=== PATIENT | female | born 1980 | race Caucasian/White ===

== ENCOUNTER → 2019-02-23 | Outpatient (CLI) | payer MEDICAID ==
[~2019-02-23] MED LIST: HYDR12.55 PO; OXAZ10CA3 PO
[2019-02-23 20:34] LABS: ALBUMIN 4.2 GM/DL (3.2-5.2); ALT/SGPT 26 U/L (12-78); BILIRUBIN,TOTAL 0.1 MG/DL (0.2-1.0); BLOOD UREA NITROGEN 18 MG/DL (7-18); CARBON DIOXIDE LEVEL 31 MEQ/L (21-32); CHLORIDE LEVEL 106 MEQ/L (98-107); CREATININE FOR GFR 0.95 MG/DL (0.55-1.30); GLOMERULAR FILTRATION RATE > 60.0 (>60); GLUCOSE, FASTING 80 MG/DL (70-100); POTASSIUM SERUM 4.2 MEQ/L (3.5-5.1); SODIUM LEVEL 139 MEQ/L (136-145); TOTAL PROTEIN 7.5 GM/DL (6.4-8.2)
[2019-02-26 11:18] LABS: HEPATITIS B SURFACE ANTIBODY NEGATIVE (POSITIVE)
[2019-02-26 11:29] LABS: HEPATITIS B SURFACE ANTIGEN NEGATIVE (NEGATIVE)
[2019-02-26 11:57] LABS: HEPATITIS C VIRUS ABY INDEX 0.1 INDEX (<0.8)
== END ==
LOC: M WUC 16:10
DX: Z11.59 Encounter for screening for other viral diseases (principal); F10.20 Alcohol dependence, uncomplicated

== ENCOUNTER → 2019-04-20 | Outpatient (CLI) | payer OTHER ==
[2019-04-20 17:14] LABS: FREE THYROXINE INDEX 2.1 % (1.3-4.8); THYROID STIMULATING HORMONE 1.1 uIU/ML (0.358-3.740); THYROXINE (T4) 6.2 UG/DL (4.5-12.0)
== END ==
LOC: M WUC 14:29
DX: F41.9 Anxiety disorder, unspecified (principal)

== ENCOUNTER 2019-06-12 21:16 | Emergency (ER) | payer MEDICAID, OTHER ==
[~2019-06-12] VITALS: Ht 162.6 cm; Wt 80.9 kg
[2019-06-12 22:43] LABS: AMPHETAMINES LEVEL URINE NEGATIVE (NEGATIVE); BARBITURATES URINE NEGATIVE (NEGATIVE); BENZODIAZEPINES URINE NEGATIVE (NEGATIVE); CANNABINOIDS URINE NEGATIVE (NEGATIVE); COCAINE METABOLITE URINE NEGATIVE (NEGATIVE); METHADONE URINE NEGATIVE (NEGATIVE); OPIATES URINE NEGATIVE (NEGATIVE); PHENCYCLIDINE URINE NEGATIVE (NEGATIVE)
[2019-06-12 23:31] LABS: HEMATOCRIT 40.1 % (36.0-47.0); HEMOGLOBIN 13.3 g/dl (12.0-15.5); MEAN CORPUSCULAR HEMOGLOBIN 29.8 pg (27.0-33.0); MEAN CORPUSCULAR HGB CONC 33.2 g/dl (32.0-36.5); MEAN CORPUSCULAR VOLUME 89.9 fl (80.0-96.0); PLATELET COUNT, AUTOMATED 342 10^3/uL (150-450); RED BLOOD COUNT 4.46 10^6/uL (4.00-5.40); WHITE BLOOD COUNT 11.1 10^3/uL (4.0-10.0)
[2019-06-13] MEDS ORDERED: OXAZEPAM 15 MG CAP PO ONE (00:15)
[2019-06-13] MEDS ORDERED: hydroCHLOROthiazide 12.5 MG CAPSULE PO ONE (00:15)
[2019-06-13 00:17] LABS: ACETAMINOPHEN LEVEL < 2.0 UG/ML (10.0-30.0); ALBUMIN 3.9 GM/DL (3.2-5.2); ALT/SGPT 20 U/L (12-78); BILIRUBIN,DIRECT < 0.1 MG/DL (0.0-0.2); BILIRUBIN,TOTAL 0.3 MG/DL (0.2-1.0); BLOOD UREA NITROGEN 13 MG/DL (7-18); CALCIUM LEVEL 8.2 MG/DL (8.5-10.1); CARBON DIOXIDE LEVEL 23 MEQ/L (21-32); CHLORIDE LEVEL 105 MEQ/L (98-107); ETHYL ALCOHOL (ETHANOL) 0.016 % (0.000-0.010); GLOMERULAR FILTRATION RATE > 60.0 (>60); GLUCOSE, FASTING 72 MG/DL (70-100); POTASSIUM SERUM 3.8 MEQ/L (3.5-5.1); SALICYLATE LEVEL 2.8 MG/DL (5.0-30.0); SODIUM LEVEL 138 MEQ/L (136-145); TOTAL PROTEIN 7.5 GM/DL (6.4-8.2)
[2019-06-13 00:21] LABS: HCG, SERUM QUALITATIVE NEGATIVE (NEGATIVE)
[2019-06-13] MEDS ORDERED: HYDR12.55 PO (00:38)
[2019-06-13] MEDS ORDERED: OXAZ10CA3 PO (00:38)
[2019-06-13 00:50] VITALS: BP 198/122
--- NOTE | 2019-06-14 06:55 | ECGEPIP ---
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
== END 2019-06-13 01:09 | disposition home or self-care (01) ==
LOC: M ED 21:16
DX: F10.20 Alcohol dependence, uncomplicated (principal); I10 Essential (primary) hypertension
CPT/HCPCS: 36415; 80048; 80076; 80307; 84443; 84703; 85027; 93005; 99284; G0480

== ENCOUNTER 2019-06-13 02:44 | Emergency (ER) | payer OTHER ==
[~2019-06-13] VITALS: Ht 162.6 cm; Wt 80.5 kg
[2019-06-13 05:07] VITALS: BP 200/115
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
== END 2019-06-13 06:04 | disposition home or self-care (01) ==
LOC: M ED 02:44
DX: Z04.1 Encounter for examination and observation following transport accident (principal); V47.5XXA Car driver injured in collision with fixed or stationary object in traffic accident, initial encounter; Y92.410 Unspecified street and highway as the place of occurrence of the external cause; I10 Essential (primary) hypertension; F10.230 Alcohol dependence with withdrawal, uncomplicated; Z79.899 Other long term (current) drug therapy

== ENCOUNTER 2019-09-30 21:58 | Emergency (ER) | payer OTHER ==
[~2019-09-30] VITALS: Ht 162.6 cm; Wt 84.1 kg
[2019-09-30] MEDS ORDERED: NS 1,000 ML IV ONE (23:30)
[2019-10-01 00:11] LABS: BASO # 0.1 10^3/uL (0.0-0.2); BASO % 1.5 % (0.0-1.0); EOS # 0.5 10^3/uL (0.0-0.5); EOS % 5.4 % (0.0-3.0); HEMATOCRIT 45.3 % (36.0-47.0); HEMOGLOBIN 14.8 g/dl (12.0-15.5); LYMPH # 2.8 10^3/uL (1.5-5.0); LYMPH % 33.6 % (24.0-44.0); MEAN CORPUSCULAR HEMOGLOBIN 28.1 pg (27.0-33.0); MEAN CORPUSCULAR HGB CONC 32.7 g/dl (32.0-36.5); MEAN CORPUSCULAR VOLUME 86.1 fl (80.0-96.0); MONO # 0.6 10^3/uL (0.0-0.8); MONO % 7.6 % (0.0-5.0); NEUTROPHILS # 4.2 10^3/uL (1.5-8.5); NEUTROPHILS % 51.1 % (36.0-66.0); PLATELET COUNT, AUTOMATED 374 10^3/uL (150-450); RED BLOOD COUNT 5.26 10^6/uL (4.00-5.40); WHITE BLOOD COUNT 8.3 10^3/uL (4.0-10.0)
[2019-10-01 00:24] LABS: AMPHETAMINES LEVEL URINE NEGATIVE (NEGATIVE); BARBITURATES URINE NEGATIVE (NEGATIVE); BENZODIAZEPINES URINE NEGATIVE (NEGATIVE); CANNABINOIDS URINE NEGATIVE (NEGATIVE); COCAINE METABOLITE URINE NEGATIVE (NEGATIVE); METHADONE URINE NEGATIVE (NEGATIVE); OPIATES URINE NEGATIVE (NEGATIVE); PHENCYCLIDINE URINE NEGATIVE (NEGATIVE)
[2019-10-01 00:25] LABS: ACETAMINOPHEN LEVEL < 2.0 UG/ML (10.0-30.0); ALBUMIN 3.8 GM/DL (3.2-5.2); ALT/SGPT 22 U/L (12-78); BILIRUBIN,DIRECT < 0.1 MG/DL (0.0-0.2); BILIRUBIN,TOTAL 0.1 MG/DL (0.2-1.0); ETHYL ALCOHOL (ETHANOL) 0.153 % (0.000-0.010); LIPASE 127 U/L (73-393); SALICYLATE LEVEL 2.3 MG/DL (5.0-30.0); TOTAL PROTEIN 8.2 GM/DL (6.4-8.2)
[2019-10-01 01:30] VITALS: BP 135/75
== END 2019-10-01 01:51 | disposition home or self-care (01) ==
LOC: M ED 21:58
DX: F10.120 Alcohol abuse with intoxication, uncomplicated (principal); F17.200 Nicotine dependence, unspecified, uncomplicated
CPT/HCPCS: 80047; 80076; 80307; 83690; 84702; 85025; 93041; 96360; 96361; 99284; G0480

== ENCOUNTER → 2019-10-16 | Outpatient (REF) | payer OTHER ==
[2019-10-16 17:48] LABS: BLOOD UREA NITROGEN 20 MG/DL (7-18); CALCIUM LEVEL 8.8 MG/DL (8.5-10.1); CARBON DIOXIDE LEVEL 28 MEQ/L (21-32); CHLORIDE LEVEL 107 MEQ/L (98-107); GLOMERULAR FILTRATION RATE > 60.0 (>60); GLUCOSE, FASTING 95 MG/DL (70-100); POTASSIUM SERUM 5.1 MEQ/L (3.5-5.1); SODIUM LEVEL 138 MEQ/L (136-145)
[2019-10-16 17:55] LABS: APPEARANCE, URINE CLOUDY (CLEAR); BACTERIA, URINE AUTO 2+ (NEGATIVE); BILIRUBIN, URINE AUTO NEGATIVE (NEGATIVE); BLOOD, URINE BLOOD NEGATIVE (NEGATIVE); COLOR, URINE YELLOW (YELLOW); GLUCOSE, URINE (UA) AUTO NEGATIVE (NEGATIVE); KETONE, URINE AUTO TRACE mg/dL (NEGATIVE); LEUKOCYTE ESTERASE, URINE AUTO TRACE (NEGATIVE); MUCUS, URINE SMALL (NEGATIVE); NITRITE, URINE AUTO NEGATIVE (NEGATIVE); PROTEIN, URINE AUTO NEGATIVE (NEGATIVE); RBC, URINE AUTO 2 /HPF (0-3); SPECIFIC GRAVITY URINE AUTO 1.021 (1.002-1.035); SQUAMOUS EPITHELIAL CELL UR AU 19 /HPF (0-6); TRANSITIONAL EPITHELIAL AUTO <1 /HPF; UROBILINOGEN, URINE AUTO 0.2 mg/dL (0.0-2.0); WBC, URINE AUTO 15 /HPF (0-3)
== END ==
LOC: M SFHCPLAZ 12:21
DX: I16.0 Hypertensive urgency (principal)

== ENCOUNTER 2019-11-07 22:10 | Observation (INO) | payer OTHER ==
[~2019-11-07] VITALS: Ht 162.6 cm; Wt 91.2 kg
[2019-11-07] MEDS ORDERED: NS 1,000 ML IV ONE (22:30)
--- NOTE | 2019-11-07 22:34 | ECGEPIP ---
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
[2019-11-07 22:50] LABS: BASO # 0.1 10^3/uL (0.0-0.2); BASO % 0.8 % (0.0-1.0); EOS # 0.3 10^3/uL (0.0-0.5); EOS % 3.8 % (0.0-3.0); HEMATOCRIT 33.3 % (36.0-47.0); HEMOGLOBIN 10.8 g/dl (12.0-15.5); LYMPH # 2.6 10^3/uL (1.5-5.0); LYMPH % 34.9 % (24.0-44.0); MEAN CORPUSCULAR HEMOGLOBIN 28.4 pg (27.0-33.0); MEAN CORPUSCULAR HGB CONC 32.4 g/dl (32.0-36.5); MEAN CORPUSCULAR VOLUME 87.6 fl (80.0-96.0); MONO # 0.7 10^3/uL (0.0-0.8); MONO % 9.3 % (0.0-5.0); NEUTROPHILS # 3.7 10^3/uL (1.5-8.5); NEUTROPHILS % 50.9 % (36.0-66.0); PLATELET COUNT, AUTOMATED 307 10^3/uL (150-450); WHITE BLOOD COUNT 7.3 10^3/uL (4.0-10.0)
[2019-11-07 23:05] LABS: AMPHETAMINES LEVEL URINE NEGATIVE (NEGATIVE); BARBITURATES URINE NEGATIVE (NEGATIVE); BENZODIAZEPINES URINE NEGATIVE (NEGATIVE); CANNABINOIDS URINE NEGATIVE (NEGATIVE); COCAINE METABOLITE URINE NEGATIVE (NEGATIVE); METHADONE URINE NEGATIVE (NEGATIVE); OPIATES URINE NEGATIVE (NEGATIVE); PHENCYCLIDINE URINE NEGATIVE (NEGATIVE)
[2019-11-07 23:24] LABS: HCG, SERUM QUALITATIVE NEGATIVE (NEGATIVE)
[2019-11-07 23:33] LABS: ACETAMINOPHEN LEVEL < 2.0 UG/ML (10.0-30.0); ALBUMIN 2.8 GM/DL (3.2-5.2); ALT/SGPT 13 U/L (12-78); BILIRUBIN,DIRECT < 0.1 MG/DL (0.0-0.2); BILIRUBIN,TOTAL < 0.1 MG/DL (0.2-1.0); BLOOD UREA NITROGEN 10 MG/DL (7-18); CALCIUM LEVEL 7.2 MG/DL (8.5-10.1); CARBON DIOXIDE LEVEL 23 MEQ/L (21-32); CHLORIDE LEVEL 110 MEQ/L (98-107); CPK CREATINE PHOSPHOKINASE 93 U/L (26-192); CREATININE FOR GFR 0.83 MG/DL (0.55-1.30); ETHYL ALCOHOL (ETHANOL) 0.195 % (0.000-0.010); GLOMERULAR FILTRATION RATE > 60.0 (>60); GLUCOSE, FASTING 102 MG/DL (70-100); POTASSIUM SERUM 2.8 MEQ/L (3.5-5.1); SALICYLATE LEVEL 3.9 MG/DL (5.0-30.0); SODIUM LEVEL 144 MEQ/L (136-145); TOTAL PROTEIN 5.6 GM/DL (6.4-8.2)
[2019-11-07] MEDS ORDERED: ACAM0.05 (23:39)
[2019-11-07] MEDS ORDERED: CLON-412 (23:39)
[2019-11-07] MEDS ORDERED: LISI-538 (23:39)
[2019-11-07] MEDS ORDERED: HYDR12CA (23:39)
[2019-11-07] MEDS ORDERED: KCL 10MEQ/100ML SWI (KRUN) 10 MEQ in IV 1 EA IV ONE (23:45)
[2019-11-07] MEDS ORDERED: POTASSIUM CHLORIDE 10 MEQ SR TABLET PO ONE (23:45)
[2019-11-07 23:54] LABS: MAGNESIUM LEVEL 2.2 MG/DL (1.8-2.4)
[2019-11-08] VITALS (8 sets, daily range): BP systolic 90–133; BP diastolic 54–74
[2019-11-08] MEDS ORDERED: POTASSIUM CHLORIDE 10 MEQ SR TABLET PO ONE (01:45)
[2019-11-08] MEDS ORDERED: KCL 10MEQ/100ML SWI (KRUN) 10 MEQ in IV 1 EA IV ONE (01:45)
[2019-11-08] MEDS ORDERED: LR 1,000 ML IV ONE (03:15)
[2019-11-08 04:45] LABS: BLOOD UREA NITROGEN 7 MG/DL (7-18); CALCIUM LEVEL 7.2 MG/DL (8.5-10.1); CARBON DIOXIDE LEVEL 21 MEQ/L (21-32); CHLORIDE LEVEL 113 MEQ/L (98-107); CREATININE FOR GFR 0.68 MG/DL (0.55-1.30); GLOMERULAR FILTRATION RATE > 60.0 (>60); GLUCOSE, FASTING 109 MG/DL (70-100); MAGNESIUM LEVEL 1.5 MG/DL (1.8-2.4); POTASSIUM SERUM 4.1 MEQ/L (3.5-5.1); SODIUM LEVEL 144 MEQ/L (136-145)
[2019-11-08] MEDS ORDERED: MAGNESIUM OXIDE 400 MG TAB (MAG-OX) PO ONE (05:30)
[2019-11-08] MEDS ORDERED: LISI-538 PO (05:30)
[2019-11-08] MEDS ORDERED: MOM 30ML SUSPENSION UDC PO PRN (05:30)
[2019-11-08] MEDS ORDERED: HYDR12CA PO (05:30)
[2019-11-08] MEDS ORDERED: CLON-412 PO (05:30)
[2019-11-08] MEDS ORDERED: MAALOX 30 ML SUSP *UDC PO PRN (05:30)
--- NOTE | 2019-11-08 05:44 | HPEPDOC ---
General Date of Admission Date of Service: Nov 08, 2019 Chief Complaint The patient is a 39-year-old female admitted with a reason for visit of Overdose. Source: Patient Exam Limitations: No limitations Timing/Duration: This afternoon Associated Symptoms: Denies Symptoms History of Present Illness 39-year-old female with past medical history of anxiety and hypertension presents for overdose. Patient was drinking with her boyfriend in the afternoon when they got into an argument. Patient reports that she had approximately 15 shots of hard liquor during this time. During the argument she decided to try and hurt herself and swallowed an unspecified amount of her blood pressure medications. Patient states that she took a handful of clonidine as well as a handful of her hydrochlorothiazide. However after ingesting the pills, patient immediately regretted it and called her neighbor who called 911. Patient denies any episodes of syncope, loss of consciousness, chest pain during his time. When patient initially presented to the ER, she was noted to be hypotensive which was stabilized with 3 liters of fluid. Patient did not require pressor support. As per poison control, patient should be monitored for an additional 6 hours to ensure blood pressure and heart rate do not drop. Patient currently denies any fevers, chills, shortness of breath, abdominal pain, chest pain, palpitations, dizziness. She states that she does not want to herself and made a bad mistake earlier this afternoon. She denies any homicidal or suicidal ideation at this time. Patient currently drinks daily and has an issue with alcohol. She smokes approximate one half pack per day of cigarettes for the past 20+ years. She lives with her boyfriend at this time. 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 Patient to be admitted to hospitalist service for further monitoring. Home Medications Scheduled Clonidine HCl (Clonidine HCl) 0.1 Mg Tablet, 0.1 MG PO BID, (Reported) Hydrochlorothiazide (Hydrochlorothiazide) 12.5 Mg Capsule, 12.5 MG PO DAILY, (Reported) Lisinopril (Lisinopril) 20 Mg Tablet, 20 MG PO QHS, (Reported) Allergies Coded Allergies: No Known Drug Allergies (Verified Allergy, Unknown, 09/30/19) Past Medical History Medical History Hypertension, anxiety, alcohol abuse Family History Significant Family History: Diabetes, Heart disease Heart failure and diabetes in father Social History * Smoker: current smoker (approximately one half pack per day for the past 20+ years) Alcohol: heavy Drugs: denies Recent Travel/Sick Contacts: Denies: Recent travel, Recent sick contacts Psychosocial History: Anxiety, Depression Patient lives with her boyfriend. 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 She is independent in all her ADLs and IADLs. She has 2 children A-FIB/CHADSVASC A-FIB History Current/History of A-Fib/PAF?: No Review of Systems Constitutional: Denies: Chills, Fever Eyes: Denies: Pain, Vision change ENT: Denies: Head Aches, Ear Pain, Dysphagia Skin: Denies: Rash, Lesions, Breakdown Pulmonary: Denies: Dyspnea, Cough Cardiovascular: Denies: Chest Pain, Palpitations, Orthopnea, Paroxysmal Noc. Dyspnea, Lt Headedness Gastrointestinal: Denies: Nausea, Vomiting, Abdominal Pain, Diarrhea Genitourinary: Denies: Dysuria, Frequency, Incontinence, Retention Hematologic: Denies: Bruising, Bleeding Excessively Musculoskeletal: Denies: Neck Pain, Back Pain, Joint Pain, Muscle Pain, Spasms Neurological: Denies: Weakness, Numbness, Change in speech, Confusion Psych: Reports: Mood Normal; Denies: Depression, Memory Issues Physical Examination General Exam: Positive: Alert, Cooperative, No Acute Distress Eye Exam: Positive: PERRLA, Conjunctiva & lids normal, EOMI; Negative: Sclera icteric ENT Exam: Positive: Atraumatic, Mucous membr. moist/pink, Tongue Midline Neck Exam: Positive: Supple, +2 carotid pulse wo bruit; Negative: JVD, thyromegaly Chest Exam: Positive: Clear to auscultation, Normal air movement Heart Exam: Positive: Rate Normal, Regular Rhythm, Normal S1, Normal S2; Negative: Murmurs, Rubs Abdomen Exam: Positive: Normal bowel sounds, Soft; Negative: Tenderness, Hepatospenomegaly Extremity Exam: Negative: Edema Skin Exam: Positive: Nl turgor and temperature; Negative: Rash Neuro Exam: Positive: Normal Speech, Strength at 5/5 X4 ext, Sensation Intact, Cranial Nerves 3-12 NL Psych Exam: Positive: Mental status NL, Mood NL, Oriented x 3, Other (currently denies any homicidal or suicidal ideation) Vital Signs Vital Signs Date Time Temp Pulse Resp B/P (MAP) Pulse Ox O2 Delivery O2 Flow Rate FiO2 11/08/19 05:10 60 114/68 (83) 96 11/07/19 23:02 17 Nasal Cannula 2.0 11/07/19 22:16 96.5 Laboratory Data Labs 24H Laboratory Tests 2 11/07/19 22:34: Urine Opiates Screen NEGATIVE, Urine Methadone Screen NEGATIVE, Urine Barbiturates Screen NEGATIVE, Urine Phencyclidine Screen NEGATIVE, Urine Amphetamines Screen NEGATIVE, Urine Benzodiazepines Screen NEGATIVE, Urine Cocaine Metabolite Screen NEGATIVE, Urine Cannabinoids Screen NEGATIVE 11/07/19 22:40: Immature Granulocyte % (Auto) 0.3, Neutrophils (%) (Auto) 50.9, Lymphocytes (%) (Auto) 34.9, Monocytes (%) (Auto) 9.3H, Eosinophils (%) (Auto) 3.8H, Basophils (%) (Auto) 0.8, Neutrophils # (Auto) 3.7, Lymphocytes # (Auto) 2.6, Monocytes # (Auto) 0.7, Eosinophils # (Auto) 0.3, Basophils # (Auto) 0.1, Nucleated Red Blood Cells % (auto) 0.0, Anion Gap 11, Glomerular Filtration Rate > 60.0, Calcium Level 7.2L, Magnesium Level 2.2, Total Bilirubin < 0.1L, Direct Bilirubin < 0.1, Aspartate Amino Transf (AST/SGOT) 14, Alanine Aminotransferase (ALT/SGPT) 13, Alkaline Phosphatase 57, Total Creatine Kinase 93, Total Protein 5.6L, Albumin 2.8L, Albumin/Globulin Ratio 1.00, Thyroid Stimulating Hormone (TSH) 3.070, Human Chorionic Gonadotropin, Qual NEGATIVE, Salicylates Level 3.9L, Acetaminophen Level < 2.0L, Ethyl Alcohol Level 0.195H 11/07/19 22:56: Bedside Glucose (Misc Panel) 109H 11/08/19 04:08: Anion Gap 10, Glomerular Filtration Rate > 60.0, Calcium Level 7.2L, Magnesium Level 1.5L CBC/BMP Laboratory Tests 11/07/19 22:40 11/08/19 04:08 Assessment/Plan 39-year-old female with severe alcoholism, hypertension presents for overdose of her blood pressure medications. Patient states that it was a suicide attempt at the time that she immediately regrets. She was hypotensive but now is currently normotensive and will need 8 additional hours of monitoring to ensure her blood pressure does not drop as per poison control. Currently is hemodynamically stable. Will admit for observation for possible discharge later this afternoon as long as blood pressure remained stable and heart rate does not drop. Patient will need psych eval prior to discharge. Plan / VTE VTE Prophylaxis Ordered?: Yes Plan Plan 1. Hypotension secondary to blood pressure medication side effects and overdose Patient intentionally swallowed multiple blood pressure medications. As per poison control, we'll need to monitor for a total 24 hours to insure blood pressure does not drop her heart rate does not go low. She is currently hemodynamically stable at this time and did not require pressor support. EKG shows sinus rhythm. - Admit to PCU - Telemetry monitoring for now - atropine needed if patient becomes severely bradycardic - BP checks every 4 hours - Monitoring until 2 PM this afternoon after which patient can be considered for discharge - Psych eval prior to discharge - order placed - Hold off on all blood pressure medications at this time 2. Suicidal ideation and attempt Patient states that this was not a true suicide attempt. She was caught in the moment and tried to hurt herself and regretted immediately. However, given the circumstances, will require psych eval prior to discharge. Patient states that she is not suicidal at this time or depressed. - Psych eval prior to discharge 3. Hypertension Takes clonidine, hydrochlorothiazide, lisinopril. We'll hold off on all medications at this time. - Hold all home meds 4. Alcohol abuse Patient is well-known alcoholic. Currently states that she wants stop drinking. Last drink was approximately 14 hours ago. Will monitor for signs of withdrawal. - CIWA protocol every 8 hours IVF: Discontinue Diet: Continue Current Activity: Continue Current Anticipated Discharge: Home AMBROSE DE LEON MD Nov 08, 2019 05:44
[2019-11-08] MEDS ORDERED: LORazepam 2 MG TAB PO PRN (05:45)
[2019-11-08] MEDS ORDERED: SLF 3 ML SYR IV PRN (07:00)
[2019-11-08] MEDS: DOCUSATE SODIUM 100 MG CAP PO SCH ×2 (09:00→21:00)
[2019-11-08] MEDS: HEPARIN SOD (PORCINE) 5000 UNITS/ML VIAL (J1644 PER 1000UNITS) SC SCH ×2 (09:26→21:29)
[2019-11-08] MEDS: MAG SULF 1GM/100ML (MAG RUN) 1 GM in IV 1 EA IV SCH ×3 (09:26→12:12)
[2019-11-08] MEDS: SLF 3 ML SYR IV SCH ×2 (13:16→21:29)
[2019-11-08] MEDS: NICOTINE 21MG/24HR 1 EA TRANSDERMAL TD PRN (13:16)
[2019-11-09] VITALS: BP 112/70
[2019-11-09] MEDS: ACETAMINOPHEN TAB 650MG DOSE (2X325MG) PO PRN ×2 (03:45→14:47)
[2019-11-09 04:00] VITALS: BP 137/89
[2019-11-09] MEDS: SLF 3 ML SYR IV SCH ×2 (05:49→13:39)
[2019-11-09 07:15] LABS: BLOOD UREA NITROGEN 20 MG/DL (7-18); CALCIUM LEVEL 7.8 MG/DL (8.5-10.1); CARBON DIOXIDE LEVEL 25 MEQ/L (21-32); CHLORIDE LEVEL 109 MEQ/L (98-107); GLOMERULAR FILTRATION RATE > 60.0 (>60); GLUCOSE, FASTING 101 MG/DL (70-100); POTASSIUM SERUM 4.4 MEQ/L (3.5-5.1); SODIUM LEVEL 142 MEQ/L (136-145)
[2019-11-09 08:00] VITALS: BP 152/84
[2019-11-09] MEDS ORDERED: hydroCHLOROthiazide 12.5 MG CAPSULE PO SCH (09:00)
[2019-11-09] MEDS: DOCUSATE SODIUM 100 MG CAP PO SCH (09:00)
[2019-11-09] MEDS: HEPARIN SOD (PORCINE) 5000 UNITS/ML VIAL (J1644 PER 1000UNITS) SC SCH (10:29)
[2019-11-09 12:00] VITALS: BP 160/80
[2019-11-09] MEDS: NICOTINE 21MG/24HR 1 EA TRANSDERMAL TD PRN (14:43)
[2019-11-09 16:30] VITALS: BP 154/90
--- NOTE | 2019-11-09 17:42 | DS.PDOC ---
Discharge Summary General Date of Admission Nov 07, 2019 at 22:11 Date of Discharge 11/09/19 Attending Physician: BENITO FINLEY MD Discharge Summary PROCEDURES PERFORMED DURING STAY: None. ADMITTING DIAGNOSES: 1. Medication overdose, alcohol intoxication, suicide attempt, hypotension. DISCHARGE DIAGNOSES: 1. Medication overdose, alcohol intoxication, suicidal attempt, hypotension. COMPLICATIONS/CHIEF COMPLAINT: Hypotension, Suicide Attempt. HISTORY OF PRESENT ILLNESS: 39-year-old female with past medical history of alcohol abuse and hypertension, was admitted after overdosing on antihypertensive medication while having are given with her significant other. Patient reports that she made a stupid decision while she was drunk to gain half-way her significant other. She had no intention of trying to kill herself and denies any suicidal ideation throughout her entire hospitalization. She was hypotensive and bradycardic at the time of presentation due to overdosing on antihypertensive medication including clonidine, received IV fluids, otherwise was monitored closely. Patient's vitals have returned to her baseline, clinically and he was likely stable at this time, antihypertensive medication has been restarted. Patient has been evaluated and cleared by psychiatry for discharge home. Patient is stable for discharge and outpatient follow-up at this time. HOSPITAL COURSE: As above. DISCHARGE MEDICATIONS: Please see below. ALLERGIES: Please see below. PHYSICAL EXAMINATION: VITAL SIGNS: Please see below. GENERAL: No distress HEENT: Normocephalic, atraumatic, moist mucous membranes NECK: Supple CARDIOVASCULAR EXAMINATION: S1, S2, no murmurs RESPIRATORY EXAMINATION: Clear to auscultation, no wheezing ABDOMINAL EXAMINATION: Soft, nontender, nondistended, positive bowel sounds EXTREMITIES: Range of motion intact SKIN: No rash NEUROLOGICAL EXAMINATION: Alert and oriented 3, no focal deficits PSYCHIATRIC EXAMINATION: Calm and cooperative LABORATORY DATA: Please see below. PROGNOSIS: Fair ACTIVITY: As tolerated. DIET: Cardiac DISCHARGE PLAN: Follow with PCP and psychiatrist in 1-2 weeks DISPOSITION: Home. DISCHARGE INSTRUCTIONS: 1. As above. DISCHARGE CONDITION: Stable. TIME SPENT ON DISCHARGE: Greater than 24 minutes. Vital Signs/I&Os Vital Signs Date Time Temp Pulse Resp B/P (MAP) Pulse Ox O2 Delivery O2 Flow Rate FiO2 11/09/19 12:00 83 160/80 11/09/19 12:00 96.2 19 100 Room Air 11/07/19 23:02 2.0 I&O- Last 24 Hours up to 6 AM 3/27/20 06:00 Intake Total 840 ml Output Total 700 ml Balance 140 ml Laboratory Data Labs 24H Laboratory Tests 2 11/09/19 06:19: Anion Gap 8, Glomerular Filtration Rate > 60.0, Calcium Level 7.8L CBC/BMP Laboratory Tests 11/09/19 06:19 Discharge Medications Scheduled Clonidine HCl (Clonidine HCl) 0.1 Mg Tablet, 0.1 MG PO BID, (Reported) Hydrochlorothiazide (Hydrochlorothiazide) 12.5 Mg Capsule, 12.5 MG PO DAILY, (Reported) Lisinopril (Lisinopril) 20 Mg Tablet, 20 MG PO QHS, (Reported) Allergies Coded Allergies: No Known Drug Allergies (Verified Allergy, Unknown, 09/30/19) BENITO FINLEY MD Nov 09, 2019 17:42
[2019-11-09] MEDS ORDERED: LISI-538 PO (17:43)
[2019-11-09] MEDS ORDERED: HYDR12CA PO (17:43)
[2019-11-09] MEDS ORDERED: CLON-412 PO (17:43)
[2019-11-09] MEDS ORDERED: cloNIDine 0.1 MG TAB PO ONE (18:15)
[2019-11-09] MEDS ORDERED: lisinopriL 20 MG TAB PO ONE (18:15)
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
[2019-11-09] MEDS ORDERED: cloNIDine 0.1 MG TAB PO SCH (21:00)
[2019-11-09] MEDS ORDERED: lisinopriL 20 MG TAB PO SCH (21:00)
== END 2019-11-09 19:01 | disposition home or self-care (01) ==
LOC: EDBD 22:10 → EDSEX 22:10 → M ED 22:10 → M ED INP 22:11 → ENRESERV 11-08 05:32 → M PCU 11-08 06:18
PROVIDERS: ADMIT Internal Medicine; ATTEND Internal Medicine
DX: T46.5X2A Poisoning by other antihypertensive drugs, intentional self-harm, initial encounter (principal); T50.2X2A Poisoning by carbonic-anhydrase inhibitors, benzothiadiazides and other diuretics, intentional self-harm, initial encounter; F10.229 Alcohol dependence with intoxication, unspecified; T14.91XA Suicide attempt, initial encounter; Y92.89 Other specified places as the place of occurrence of the external cause; I95.2 Hypotension due to drugs; R00.1 Bradycardia, unspecified; I10 Essential (primary) hypertension; F43.10 Post-traumatic stress disorder, unspecified; F41.9 Anxiety disorder, unspecified; F32.9 Major depressive disorder, single episode, unspecified; Z79.899 Other long term (current) drug therapy; F17.210 Nicotine dependence, cigarettes, uncomplicated
CPT/HCPCS: 36415; 80048; 80076; 80307; 82550; 83735; 84443; 84703; 85025; 93005; 93041; 94760; 96361; 96365; 96366; 96367; 96372; 99285; G0480; J1644; J3475